=== PATIENT | male | born 2000 | race Hispanic/Latino ===

== ENCOUNTER 2020-12-06 09:20 | Emergency (ER) | payer BC, OTHER ==
--- OUTSIDE RECORDS SUMMARY | 2020-12-06 09:23 | XMS REPORT | Continuity of Care Document ---
:2000 Author Organization [facility] t Address [address] [place] [address] Care Team Providers Name Role Phone Only, Test Attending Clinician Unavailable Jhonatan Quiles MD Attending Clinician Unavailable Doctor Unassigned, Name Attending Clinician Unavailable Sara WATERS, T Attending Clinician Unavailable Lab, Fam Pob I Attending Clinician Unavailable Sylvie ROOF DESIGNER Attending Clinician Problems This patient has no known problems. Allergies, Adverse Reactions, Alerts This patient has no known allergies or adverse reactions. Medications This patient has no known medications. Procedures This patient has no known procedures. Encounters Start End Encounter Admission Attending Care Care Encounter Source Date/Time Date/Time Type Type Clinicians Facility Department ID 2020-01-18 2020-01-18 Laboratory Only, [facility] [id number] 15:07:33 15:22:33 Only Test Venkatesh [id number] [place] [id number] [place] [id number] 2020-01-18 2020-01-18 Telephone JOHAN Quiles [id number] 00:00:00 00:00:00 Rolf OWEN [id number] [facility] [id number] 2020-01-18 2020-01-18 Orders Doctor PRADO [id number] 00:00:00 00:00:00 Only UnaBRAYDEN velazquez [id number] [facility] [id number] 2020-01-13 2020-01-13 Letter JOHAN Ruiz [id number] 00:00:00 00:00:00 (Out) Paige OWEN [id number] [facility] [id number] 2020-01-12 2020-01-12 Laboratory Lab, [facility] [id number] 08:47:47 09:07:47 Only Fam Pob I Health [id number] [place] [id number] [facility] [phone] [address]al [address] 2019-12-31 2019-12-31 Telephone JOHAN Mercer [id number] 00:00:00 00:00:00 Laura OWEN [id number] [facility] [id number] 2019-12-29 2019-12-29 Laboratory Lab, [facility] [id number] 09:25:22 09:45:22 Only Fam Pob I Health [id number] [place] [id number] [facility] [id number] nal [address] Results This patient has no known results.
--- NOTE | 2020-12-06 09:56 | RAD REPORT ---
EXAM DESCRIPTION: CT - Head Brain Wo Cont - 12/06/2020 9:45 am CLINICAL HISTORY: headache COMPARISON: None TECHNIQUE: Computed axial tomography of the head was obtained. IV contrast was not requested. All CT scans are performed using dose optimization technique as appropriate and may include automated exposure control or mA/KV adjustment according to patient size. FINDINGS: An intracranial bleed is not seen . Mild cerebellar tonsillar ectopia The ventricles are normal in caliber. No extra-axial fluid collection is noted. Fluid within the sinuses/ mastoids is not seen. IMPRESSION: Mild cerebellar tonsillar ectopia No acute intracranial abnormality is seen. If patient's symptoms persist MRI of the brain would be r ecommended.
[2020-12-06] MEDS ORDERED: ONDANSETRON 4 MG/2 ML VIAL ONE (12:48)
[2020-12-06] MEDS ORDERED: METOCLOPRAMIDE 10 MG/2mL INJ ONE (12:48)
[2020-12-06] MEDS ORDERED: DIPHENHYDRAMINE 50 MG/ML VIAL ONE (12:48)
[2020-12-06] MEDS ORDERED: KETOROLAC 30 MG/ML INJ ONE (12:48)
[2020-12-06] MEDS ORDERED: dexAMETHasone 10 MG/ML VIAL ONE (12:48)
[2020-12-06] MEDS ORDERED: NA CHLORIDE 0.9% 1,000 ML ONE (12:48)
[2020-12-06 12:53] LABS: Absolute Lymphocytes (CBC) 0.8 K/uL (0.7-4.9); Basophils % 0.5 % (0-1.3); Hematocrit 45.1 % (39.6-49.0); MPV 9.9 fL (7.6-11.3); RBC Red Blood Cell Count 5.25 M/uL (4.33-5.43)
[2020-12-06 12:54] LABS: Protime INR 1.09
[2020-12-06 13:09] LABS: ALT/SGPT 210 U/L (12-78); AST/SGOT 127 U/L (15-37); Albumin 3.8 g/dL (3.4-5.0); Alkaline Phosphatase 82 U/L (45-117); BUN Blood Urea Nitrogen 6 mg/dL (7-18); Bicarbonate 30 mmol/L (21-32); Bilirubin Direct 0.2 mg/dL (0-0.2); Bilirubin Total 0.6 mg/dL (0.2-1.0); Glucose Level 87 mg/dL (74-106); Magnesium 2.2 mg/dL (1.8-2.4); Potassium 3.7 mmol/L (3.5-5.1); Protein, Total 7.7 g/dL (6.4-8.2); Sodium Level 140 mmol/L (136-145)
--- NOTE | 2020-12-06 13:40 | ER ---
Nurse's Notes [facility] Name: Michi Solis Jr Age: 20 yrs Sex: Male : 2000 Arrival Date: 12/06/2020 Time: 09:24 Bed 12 Private MD: Diagnosis: Headache;Elevated blood-pressure reading, without diagnosis of hypertension;Abnormal results of liver function studies Presentation: 12/06 09:29 Chief complaint: Patient states: headache to frontal and occipital area in the mornings aa5 for 5 days, pt also reports 2 episodes of dizziness when he "bends over". Pt reports nausea, denies vomiting. Coronavirus screen: At this time, the client does not indicate any symptoms associated with coronavirus-19. Ebola Screen: Patient negative for fever greater than or equal to 101.5 degrees Fahrenheit, and additional compatible Ebola Virus Disease symptoms. Initial Sepsis Screen: Does the patient meet any 2 criteria? No. Patient's initial sepsis screen is negative. Does the patient have a suspected source of infection? No. Patient's initial sepsis screen is negative. Risk Assessment: Do you want to hurt yourself or someone else? Patient reports no desire to harm self or others. Onset of symptoms was November 2020. 09:29 Method Of Arrival: Ambulatory aa5 09:29 Acuity: BRODIE 3 aa5 Triage Assessment: 12:45 Headache History: The patient has had previous headaches and this one is similar to iw previous episodes. Pain: Also complains of no other associated symptoms. 12:50 Pain: Pain currently is 5 out of 10 on a pain scale. Pain began. iw Historical: - Allergies: 09:31 No Known Allergies; aa5 - Home Meds: 09:31 None [Active]; aa5 - PMHx: 09:31 None; aa5 - PSHx: 09:31 None; aa5 - Immunization history:: Flu vaccine is up to date. - Social history:: Smoking status: Patient denies any tobacco usage or history of. Screenin:45 Abuse screen: Denies threats or abuse. Denies injuries from another. Nutritional iw screening: No deficits noted. Tuberculosis screening: No symptoms or risk factors identified. Fall Risk None identified. Assessment: 12:43 General: Appears in no apparent distress. Behavior is calm, cooperative. Pain: iw Complains of pain in face. Neuro: Level of Consciousness is awake, alert, obeys commands, Oriented to person, place, time, situation, Moves all extremities. Full function. Neuro: Reports headache. Cardiovascular: Patient's skin is warm and dry. Respiratory: Respiratory effort is even, unlabored, Respiratory pattern is regular. GI: Reports nausea. Derm: Skin is intact, is healthy with good turgor. Musculoskeletal: Range of motion: intact in all extremities. 13:51 Reassessment: Patient is alert, oriented x 3, equal unlabored respirations, skin iw warm/dry/pink. Vital Signs: 09:29 BP 150 / 93; Pulse 100; Resp 18 S; Temp 98.6(TE); Pulse Ox 99% on R/A; Weight 158.76 kg aa5 (R); Height 6 ft. 2 in. (187.96 cm) (R); Pain 2/10; 13:02 BP 138 / 90; Pulse 74; Resp 16; Pulse Ox 98.% on R/A; iw 09:29 Body Mass Index 44.94 (158.76 kg, 187.96 cm) aa5 ED Course: 09:24 Patient arrived in ED. as 09:29 Arm band placed on. aa5 09:31 Triage completed. aa5 09:37 Duane Gallo PA is PHCP. cp 09:37 Duane Molina MD is Attending Physician. cp 09:45 CT Head Brain wo Cont In Process Unspecified. EDMS 12:25 Initial lab(s) drawn, by me, sent to lab. Inserted saline lock: 20 gauge in right aa5 antecubital area, using aseptic technique. Blood collected. 12:39 Deb Bynum, RN is Primary Nurse. iw 12:45 Patient has correct armband on for positive identification. iw 13:50 IV discontinued, intact, bleeding controlled, No redness/swelling at site. Pressure iw dressing applied. 13:50 No provider procedures requiring assistance completed. iw Administered Medications: 12:39 Drug: NS 0.9% 1000 ml Route: IV; Rate: 1 bolus; Site: right antecubital; iw 13:30 Follow up: IV Status: Completed infusion iw 12:39 Drug: Reglan (metoCLOPramide) 10 mg Route: IVP; Site: right antecubital; iw 13:30 Follow up: Response: No adverse reaction iw 12:39 Drug: Zofran (Ondansetron) 4 mg Route: IVP; Site: right antecubital; iw 13:00 Follow up: Response: No adverse reaction iw 12:40 Drug: Decadron - Dexamethasone 10 mg Route: IVP; Site: right antecubital; iw 13:10 Follow up: Response: No adverse reaction iw 12:40 Drug: Ketorolac 15 mg Route: IVP; Site: right antecubital; iw 13:40 Follow up: Response: No adverse reaction; Pain is decreased iw 12:40 Drug: Benadryl (diphenhydrAMINE) 25 mg Route: IVP; Site: right antecubital; iw 13:40 Follow up: Response: No adverse reaction; Pain is decreased iw Outcome: 13:39 Discharge ordered by MD. cp 13:51 Discharged to home ambulatory. iw 13:51 Condition: improved 13:51 Discharge instructions given to patient, Instructed on discharge instructions, follow up and referral plans. medication usage, Demonstrated understanding of instructions, follow-up care, medications, Prescriptions given X 1. 13:51 Patient left the ED. iw Signatures: Dispatcher [employer] Shagufta Vivas Irene RN EVELIN iw Rosio Black RN RN aa5 Duane Gallo, GINA PA cp
--- NOTE | 2020-12-06 13:40 | EDPHYS ---
Physician Documentation [facility] Name: Michi Solis Jr Age: 20 yrs Sex: Male : 2000 Arrival Date: 12/06/2020 Time: 09:24 Bed 12 Private MD: ED Physician Duane Molina HPI: 12/06 12:10 This 20 yrs old Male presents to ER via Ambulatory with complaints of cp Headache, Dizziness. 12:10 The patient complains of pain to the top of head and forehead and back of head. cp 12:10 The patient describes the headache as aching, waxing and waning. Onset: The cp symptoms/episode began/occurred 5 day(s) ago. 19:22 Associated signs and symptoms: Pertinent positives: dizziness, nausea, Pertinent cp negatives: altered mental status, neck stiffness, Photophobia vision changes, vomiting, weakness. Severity of symptoms: in the emergency department the pain a " 5" out of "10". Historical: - Allergies: 09:31 No Known Allergies; aa5 - Home Meds: 09:31 None [Active]; aa5 - PMHx: 09:31 None; aa5 - PSHx: 09:31 None; aa5 - Immunization history:: Flu vaccine is up to date. - Social history:: Smoking status: Patient denies any tobacco usage or history of. ROS: 12:15 Constitutional: Negative for body aches, chills, fever, poor PO intake. cp 12:15 Eyes: Negative for injury, pain, redness, and discharge. cp 12:15 ENT: Negative for ear pain, sore throat, difficulty swallowing, difficulty handling secretions. 12:15 Respiratory: Negative for cough, shortness of breath, wheezing. 12:15 Abdomen/GI: Negative for abdominal pain, vomiting, diarrhea, constipation. 12:15 Back: Negative for pain at rest, pain with movement. 12:15 Skin: Negative for rash. 12:15 Neuro: Positive for dizziness, headache, Negative for altered mental status, syncope, weakness. 12:15 All other systems are negative. Exam: 12:22 Head/Face: Normocephalic, atraumatic. cp 12:22 Constitutional: The patient appears in no acute distress, alert, awake, non-diaphoretic, non-toxic, well developed, well nourished, obese. 12:22 Eyes: Periorbital structures: appear normal, Pupils: equal, round, and reactive to light and accomodation, Extraocular movements: intact throughout, Conjunctiva: normal, no exudate, no injection, Sclera: no appreciated abnormality, Lids and lashes: appear normal, bilaterally. 12:22 ENT: External ear(s): are unremarkable, Ear canal(s): are normal, clear, TM's: dullness, bilaterally, Nose: is normal, Mouth: Lips: moist, Oral mucosa: pink and intact, moist, Posterior pharynx: is normal, airway is patent, no erythema, no exudate. 12:22 Neck: ROM/movement: is normal, is supple, without pain, no range of motions limitations, no meningismus, no nuchal rigidity. 12:22 Chest/axilla: Inspection: normal, Palpation: is normal, no crepitus, no tenderness. 12:22 Cardiovascular: Rate: normal, Rhythm: regular, Heart sounds: murmur, not appreciated, Edema: is not appreciated. 12:22 Respiratory: the patient does not display signs of respiratory distress, Respirations: normal, no use of accessory muscles, no retractions, labored breathing, is not present, Breath sounds: are clear throughout, no decreased breath sounds. 12:22 Abdomen/GI: Inspection: abdomen appears normal, Palpation: abdomen is soft and non-tender, in all quadrants. 12:22 Neuro: Orientation: to person, place \\T\\ time. Mentation: is normal, Cerebellar function: is grossly normal, Motor: moves all fours, strength is normal, Sensation: is normal. Vital Signs: 09:29 BP 150 / 93; Pulse 100; Resp 18 S; Temp 98.6(TE); Pulse Ox 99% on R/A; Weight 158.76 kg aa5 (R); Height 6 ft. 2 in. (187.96 cm) (R); Pain 2/10; 13:02 BP 138 / 90; Pulse 74; Resp 16; Pulse Ox 98.% on R/A; iw 09:29 Body Mass Index 44.94 (158.76 kg, 187.96 cm) aa5 MDM: 12:04 Patient medically screened. [facility] 13:38 Data reviewed: vital signs, nurses notes, lab test result(s), radiologic studies, CT cp scan, and as a result, I will discharge patient. 13:38 Differential diagnosis: hyponatremia, intracerebral hemorrhage, meningitis, cp meningoencephalitis, migraine, subarachnoid bleed, subdural hematoma, tension headache. Counseling: I had a detailed discussion with the patient and/or guardian regarding: the historical points, exam findings, and any diagnostic results supporting the discharge/admit diagnosis, lab results, radiology results, the need for outpatient follow up, a family practitioner, to return to the emergency department if symptoms worsen or persist or if there are any questions or concerns that arise at home. 12/06 12:13 Order name: Basic Metabolic Panel; Complete Time: 13:12 cp 12/06 13:12 Interpretation: Normal except: BUN 6. cp 12/06 12:13 Order name: CBC with Diff 12/06 13:12 Interpretation: Normal except: PLT 130. 12/06 09:32 Order name: CT Head Brain wo Cont; Complete Time: 12:07 aa5 12/06 12:13 Order name: LFT's; Complete Time: 13:12 cp 12/06 13:13 Interpretation: Normal except: AST 127; ALT 210; GLOB 3.9; A/G 1.0. cp 12/06 12:13 Order name: Magnesium; Complete Time: 13:12 cp 12/06 12:13 Order name: PT-INR; Complete Time: 13:12 cp 12/06 12:13 Order name: IV Saline Lock; Complete Time: 12:28 cp 12/06 12:13 Order name: Labs collected and sent; Complete Time: 12:28 cp 12/06 12:13 Order name: O2 Per Protocol; Complete Time: 12:28 cp 12/06 12:13 Order name: O2 Sat Monitoring; Complete Time: 12:28 cp Administered Medications: 12:39 Drug: NS 0.9% 1000 ml Route: IV; Rate: 1 bolus; Site: right antecubital; iw 13:30 Follow up: IV Status: Completed infusion iw 12:39 Drug: Reglan (metoCLOPramide) 10 mg Route: IVP; Site: right antecubital; iw 13:30 Follow up: Response: No adverse reaction iw 12:39 Drug: Zofran (Ondansetron) 4 mg Route: IVP; Site: right antecubital; iw 13:00 Follow up: Response: No adverse reaction iw 12:40 Drug: Decadron - Dexamethasone 10 mg Route: IVP; Site: right antecubital; iw 13:10 Follow up: Response: No adverse reaction iw 12:40 Drug: Ketorolac 15 mg Route: IVP; Site: right antecubital; iw 13:40 Follow up: Response: No adverse reaction; Pain is decreased iw 12:40 Drug: Benadryl (diphenhydrAMINE) 25 mg Route: IVP; Site: right antecubital; iw 13:40 Follow up: Response: No adverse reaction; Pain is decreased iw Disposition: 12/07 06:25 Co-signature as Attending Physician, Duane Molina MD I agree with the assessment and yuly plan of care. Disposition Summary: 12/06/20 13:39 Discharge Ordered Location: Home cp Problem: new cp Symptoms: have improved cp Condition: Stable cp Diagnosis - Headache cp - Elevated blood-pressure reading, without diagnosis of hypertension cp - Abnormal results of liver function studies cp Followup: cp - With: Private Physician - When: 2 - 3 days - Reason: Recheck today's complaints Discharge Instructions: - Discharge Summary Sheet cp - General Headache Without Cause cp - How to Take Your Blood Pressure cp Forms: - Medication Reconciliation Form cp - Work release form iw - Thank You Letter cp - Antibiotic Education cp - Prescription Opioid Use cp Prescriptions: - Ibuprofen 800 mg Oral Tablet - take 1 tablet by ORAL route every 8 hours As needed take with food; 30 tablet; cp Refills: 0, Product Selection Permitted Signatures: Dispatcher [employer] Duane Forte MD MD cha Williams, Irene RN Rosio Sanchez RN RN aa5 Duane Gallo PA PA cp Corrections: (The following items were deleted from the chart) 12/06 12:20 12:13 Cardiac monitoring ordered. cp iw :12/05 12:22 Constitutional: The patient appears in no acute distress, alert, awake, cp non-diaphoretic, non-toxic, well developed, well nourished, obese, cp 12/06 19:20 12/05 12:22 Head/Face: Normocephalic, atraumatic. cp cp 12/06 19:12/05 12:22 Eyes: Periorbital structures: appear normal, Pupils: equal, round, and cp reactive to light and accomodation, Extraocular movements: intact throughout, Conjunctiva: normal, no exudate, no injection, Sclera: no appreciated abnormality, Lids and lashes: appear normal, bilaterally, cp 12/06 18:12/05 12:22 ENT: External ear(s): are unremarkable, Ear canal(s): are normal, clear, cp TM's: dullness, bilaterally, Nose: is normal, Mouth: Lips: moist, Oral mucosa: pink and intact, moist, Posterior pharynx: is normal, airway is patent, no erythema, no exudate, cp 12/06 18:12/05 12:22 Neck: ROM/movement: is normal, is supple, without pain, no range of motions cp limitations, no meningismus, no nuchal rigidity, cp 12/06 18:12/05 12:22 Chest/axilla: Inspection: normal, Palpation: is normal, no crepitus, no cp tenderness, cp 12/06 18:12/05 12:22 Cardiovascular: Rate: normal, Rhythm: regular, Heart sounds: murmur, not cp appreciated, Edema: is not appreciated, cp 12/06 18:12/05 12:22 Respiratory: the patient does not display signs of respiratory distress, cp Respirations: normal, no use of accessory muscles, no retractions, labored breathing, is not present, Breath sounds: are clear throughout, no decreased breath sounds, cp 12/06 18:12/05 12:22 Abdomen/GI: Inspection: abdomen appears normal, Palpation: abdomen is soft cp and non-tender, in all quadrants, cp 12/06 18:12/05 12:22 Neuro: Orientation: to person, place \\T\\ time. Mentation: is normal, cp Cerebellar function: is grossly normal, Motor: moves all fours, strength is normal, Sensation: is normal, cp
[2020-12-06 13:58] LABS: Blood Morphology Comment NOT SEEN (NOT SEEN); Platelet Estimate DECR; Platelets, Giant PRESENT; White Blood Cell Scan OK (OK)
[2020-12-06 21:44] VITALS: TEMP 98.6; O2SAT 99
[2020-12-06 21:45] VITALS: BP 138/90
== END 2020-12-06 13:51 | disposition home or self-care (01) ==
LOC: ER 09:20
DX: R03.0 Elevated blood-pressure reading, without diagnosis of hypertension (principal); R94.5 Abnormal results of liver function studies
CPT/HCPCS: 96361; 85025; 80048; 36415; 83735; 85610; 80076; 70450; 96375; 96374; 99284; J2765; J1200; J1100; J7030; J2405

== ENCOUNTER 2023-03-05 11:30 | Emergency (ER) | payer BC, SELFPAY ==
--- OUTSIDE RECORDS SUMMARY | 2023-03-05 11:33 | XMS REPORT | Continuity of Care Document ---
:2000 Author Organization [facility] t Address [address] [facility] [address] [place] [address] Care Team Providers Name Role Phone Rolf Quiles MD Primary Care Physician Unavailable Only, Ang Db Test Attending Clinician Unavailable Gagan Nino MD Attending Clinician GAGAN NINO Attending Clinician Unavailable Sadie Samaniego RN Attending Clinician Unavailable Doctor Unassigned, [place] Attending Clinician Unavailable Only, Adc Test Attending Clinician Unavailable Sadiq Zaldivar MD Attending Clinician Rolf Quiles MD Attending Clinician Unavailable Paige Ruiz RN Attending Clinician Unavailable Lab, Adc Fam Pob I Attending Clinician Unavailable Laura Mills Attending Clinician LAURA CROWELL Attending Clinician Unavailable Payers Payer Name Policy Type Policy Number Effective Date Expiration Date S ource Problems This patient has no known problems. Allergies, Adverse Reactions, Alerts Allergy Allergy Status Severity Reaction(s) Onset Inactive Treating Comm ents Source Name Type Date Date Clinician NO KNOWN Drug Active [facility] Social History Social Habit Start Date Stop Date Quantity Comments Source Sexual orientation [facility] Exposure to 2021-02-24 2021-03-26 Not sure [facility] SARS-CoV-2 (event) 00:00:00 11:53:00 [facility] At [birth year] [facility] Medical [place] Smoking Status Start Date Stop Date Source Tobacco smoking consumption Univ [facility] unknown Branch Medications This patient has no known medications. Procedures Procedure Date / Time Performing Clinician Source Performed ASSIGNMENT OF BENEFITS 2021-01-15 16:46:13 Doctor Unassigned, No [facility] PATIENT QUESTIONNAIRE 2020-01-18 05:01:00 Doctor Unassigned, No [facility] Encounters Start End Encounter Admission Attending Care Care Encounter Source Date/Time Date/Time Type Type Clinicians Facility Department ID 2021-03-26 2021-03-26 Laboratory Only, Ang Db Test [facility] 1.2.8 40.114 [id number] Univers 11:54:38 12:09:38 Only Nadir Gagan HEALTH [id number] ity of [place] 4.2.7.2.686 Abraham as TANO?BLEA [phone] [address] MEDICAL OFFICE [facility] 2021-03-26 2021-03-26 [facility] [id number] Univers 12:00:00 12:04:53 [facility] 2021-01-16 2021-01-16 Telephone JOHAN Samaniego [id number] Univers 00:00:00 00:00:00 Sadie OWEN [id number] it y of [facility] 4.2.7.2.686 Abraham as [id number] [address] 2021-01-15 2021-01-15 Laboratory Only, Ang Db Test [facility] 1.2.8 40.114 [id number] Univers 11:46:15 11:56:15 Only Nadir Gagan [facility] [id number] ity of [place] 4.2.7.2.686 Abraham as Tano?Blea [phone] [address] Medical Office [facility] 2021-01-15 2021-01-15 [facility] [id number] Univers 11:45:00 11:45:00 GAGAN [facility] 2021-01-15 2021-01-15 Orders Doctor PRADO 1.2.840.114 [id number] Univers 00:00:00 00:00:00 Only Unassigned, [place] [id number] ity of [place] [facility] 4.2.7.2.686 Abraham as [phone] [address] 2020-01-18 2020-01-18 Laboratory Only, [facility] 1.2.840.114 [id number] 15:07:33 15:22:33 Only Test [place] [id number] [place] 4.2.7.2.686 [place] [id number] 2020-01-18 2020-01-18 Laboratory Only, [employer] Test [facility] 1.2.840. 114 [id number] Univers 15:07:33 15:22:33 Only Sadiq Zaldivar 350.1.13.10 ity [facility] 4.2.7.2.686 [place] [facility] [id number] [address] 2020-01-18 2020-01-18 Outpatient R [facility] [id number] Univers 14:45:00 14:45:00 ity [facility] 2020-01-18 2020-01-18 Telephone JOHAN Quiles [id number] 00:00:00 00:00:00 Rolf OWEN [id number] [facility] 4.2.7.2.686 [id number] 2020-01-18 2020-01-18 Orders Doctor PRADO 1.2.840.114 [id number] 00:00:00 00:00:00 Only Unassigned, [place] [id number] [place] [facility] 4.2.7.2.686 [id number] 2020-01-18 2020-01-18 Telephone JOHAN Quiles.[id number] Univers 00:00:00 00:00:00 Rolf OWEN [id number] it y of [facility] 4.2.7.2.686 Abraham as [phone] [address] 2020-01-18 2020-01-18 Orders Doctor JOHAN Sanders.2.840.114 [id number] Univers 00:00:00 00:00:00 Only Unassigned, [place]RAY[place] [id number] ity of [place] [facility] 4.2.7.2.686 Abraham as [id number] [facility] 009 [place] 2020-01-13 2020-01-13 Letter JOHAN Ruiz 1.2.840.114 [id number] Univers 00:00:00 00:00:00 (Out) Paige Ramirez [place] [id number] it y of HOSPITAL 4.2.7.2.686 Abraham as [id number] [facility] 019 [place] 2020-01-13 2020-01-13 Patient Doctor JOHAN 1.2.840.114 [id number] Univers 00:00:00 00:00:00 Secure Msg Unassigned, [place]RAY[place] 350.1.13.10 ity of [place] [facility] 4.2.7.2.686 Abraham as [phone] [facility] 019 [place] 2020-01-13 2020-01-13 Letter JOHAN Ruiz 1.2.840.114 [id number] 00:00:00 00:00:00 (Out) Paige Ramirez [place] 350.1.13.10 HOSPITAL 4.2.7.2.686 [id number] 2020-01-12 2020-01-12 Laboratory Lab, [employer] Fam Pob I [facility] 1.2. 840.114 [id number] Univers 08:47:47 09:07:47 Only Sylvie [facility] 350.1.13.10 ity of [place] 4.2.7.2.686 Abraham as Professio [phone] Nd dical [address] Office [facility] 2020-01-12 2020-01-12 Laboratory Lab, [facility] 1.2.840.114 [id number] 08:47:47 09:07:47 Only Fam Pob I Health 350.1.13.10 [place] 4.2.7.2.686 Professio [phone] [place] [address] [facility] 2020-01-12 2020-01-12 Outpatient R SYLVIE [facility] [id number] Univers 08:20:00 08:20:00 LAURA ity of [facility] 2019-12-31 2019-12-31 Telephone JOHAN Crowell [id number] [facility] 00:00:00 00:00:00 Laura OWEN 350.1.13.10 it y of [facility] 4.2.7.2.686 Abraham as [phone] [address] 2019-12-31 2019-12-31 Telephone JOHAN Crowell [id number] 00:00:00 00:00:00 Laura OWEN 350.1.13.10 [facility] 4.2.7.2.686 [id number] [facility] 2019-12-29 2019-12-29 Laboratory Lab, [facility] Pob I [facility] 1.2. 840.114 [id number] [facility] 09:25:22 09:45:22 Only Laura Crowell 350.1.13.[address] [facility] 4.2.7.2.686 Abraham as Professio [phone] Nd dical [address] Office Building [facility] 2019-12-29 2019-12-29 Laboratory Lab, [facility] 1.2.840.114 [id number] 09:25:22 09:45:22 Only [facility] Health 350.1.13.10 [place] 4.2.7.2.686 Professio [phone] [place] [address] Office Building [facility] 2019-12-29 2019-12-29 Outpatient R SYLVIE [facility] [id number] [facility] 09:20:00 09:20:00 LAURA maradiaga of [facility] Results This patient has no known results.
[2023-03-05 11:49] LABS: Absolute Lymphocytes (CBC) 2.5 K/uL (0.7-4.9); Hematocrit 42.2 % (39.6-49.0); MCV 85.8 fL (80-100); MPV 10.1 fL (7.6-11.3); Platelets 156 thou/uL (152-406); RBC Red Blood Cell Count 4.92 M/uL (4.33-5.43)
[2023-03-05] MEDS ORDERED: MORPHINE 4 MG/ML SYR ONE (11:50)
[2023-03-05] MEDS ORDERED: KETOROLAC 30 MG/ML INJ ONE (11:50)
[2023-03-05] MEDS ORDERED: NA CHLORIDE 0.9% 1,000 ML ONE ×2 (11:51→12:43)
[2023-03-05] MEDS ORDERED: ONDANSETRON 4 MG/2 ML VIAL ONE (11:51)
--- NOTE | 2023-03-05 12:05 | RAD REPORT ---
EXAM DESCRIPTION: CT - Stone Protocol - 03/05/2023 11:46 am CLINICAL HISTORY: Flank pain. Abd pain;Flank pain COMPARISON: No comparisons TECHNIQUE: Axial images were obtained without oral or IV contrast. Lack of contrast limits solid org an and vascular assessment. The [id number] spans the entirety of the system partially obscuring uppermost abdomen and lung bases. Coronal reformatted images were obtained and reviewed. All CT scans are performed using dose optimization technique as appropriate and may include automated exposure control or mA/KV adjustment according to patient size. FINDINGS: The lower lung duffy are clear. Imaged portions of the liver and spleen show no suspicious findings on non-contrast imaging. The panc reas and adrenal glands are normal. No pathologic lymphadenopathy in the abdomen or pelvis. 2 mm calculus is seen at the right UVJ along the bladder mucosa. No significant hydronephrosis. No bowel obstruction, free air, free fluid or abscess. Normal appendix noted. No significant bony abnormality. IMPRESSION: 2 mm calculus right UVJ along the bladder mucosa. No hydronephrosis seen bilaterally.
[2023-03-05 12:08] LABS: Albumin 3.7 g/dL (3.4-5.0); Bilirubin Total 0.7 mg/dL (0.2-1.0); Potassium 3.6 mEq/L (3.5-5.1); Protein, Total 7.5 g/dL (6.4-8.2)
--- NOTE | 2023-03-05 12:12 | EDPHYS ---
Physician Documentation [facility] Name: Michi Solis Jr Age: 22 yrs Sex: Male : 2000 Arrival Date: 03/05/2023 Time: 11:30 Bed 2 Private MD: ED Physician Duane Molina HPI: 03/05 11:33 This 22 yrs old Male presents to ER via Unassigned with complaints of Back yuly Pain. 11:33 The patient presents with pain that is acute, with no known mechanism of injury. The yuly symptoms are located in the low back, right mid back and right low back. Onset: The symptoms/episode began/occurred just prior to arrival. The pain does not radiate. Associated signs and symptoms: The patient has no apparent associated signs or symptoms. The problem was sustained from unknown cause. Modifying factors: The patient symptoms are alleviated by nothing, the patient symptoms are aggravated by nothing. Severity of symptoms: At their worst the symptoms were moderate, in the emergency department the symptoms have resolved. The patient has not experienced similar symptoms in the past. Historical: - Allergies: 11:33 No Known Allergies; kc6 - Home Meds: 11:33 None [Active]; kc6 - PMHx: 11:33 None; kc6 - PSHx: 11:33 None; kc6 - Immunization history:: Adult Immunizations up to date. - Social history:: Smoking status: Reported history of juuling and/or vaping. - Family history:: not pertinent. ROS: 11:33 Constitutional: Negative for fever, chills, and weight loss, Eyes: Negative for injury, yuly pain, redness, and discharge, ENT: Negative for injury, pain, and discharge, Neck: Negative for injury, pain, and swelling, Cardiovascular: Negative for chest pain, palpitations, and edema, Respiratory: Negative for shortness of breath, cough, wheezing, and pleuritic chest pain, Back: Negative for injury and pain, : Negative for injury, bleeding, discharge, and swelling, MS/Extremity: Negative for injury and deformity, Skin: Negative for injury, rash, and discoloration, Neuro: Negative for headache, weakness, numbness, tingling, and seizure, Psych: Negative for depression, anxiety, suicide ideation, homicidal ideation, and hallucinations, Allergy/Immunology: Negative for hives, rash, and allergies, Endocrine: Negative for neck swelling, polydipsia, polyuria, polyphagia, and marked weight changes, Hematologic/Lymphatic: Negative for swollen nodes, abnormal bleeding, and unusual bruising, 11:33 Abdomen/GI: Positive for abdominal pain, of the anterior aspect of left lateral abdomen, posterior aspect of left lateral abdomen, right upper quadrant and right lower quadrant, Exam: 11:33 Constitutional: This is a well developed, well nourished patient who is awake, alert, yuly and in no acute distress. Head/Face: Normocephalic, atraumatic. Eyes: Pupils equal round and reactive to light, extra-ocular motions intact. Lids and lashes normal. Conjunctiva and sclera are non-icteric and not injected. Cornea within normal limits. Periorbital areas with no swelling, redness, or edema. ENT: Nares patent. No nasal discharge, no septal abnormalities noted. Tympanic membranes are normal and external auditory canals are clear. Oropharynx with no redness, swelling, or masses, exudates, or evidence of obstruction, uvula midline. Mucous membranes moist. Neck: Trachea midline, no thyromegaly or masses palpated, and no cervical lymphadenopathy. Supple, full range of motion without nuchal rigidity, or vertebral point tenderness. No Meningismus. Chest/axilla: Normal chest wall appearance and motion. Nontender with no deformity. No lesions are appreciated. Cardiovascular: Regular rate and rhythm with a normal S1 and S2. No gallops, murmurs, or rubs. Normal PMI, no JVD. No pulse deficits. Respiratory: Lungs have equal breath sounds bilaterally, clear to auscultation and percussion. No rales, rhonchi or wheezes noted. No increased work of breathing, no retractions or nasal flaring. Abdomen/GI: Soft, non-tender, with normal bowel sounds. No distension or tympany. No guarding or rebound. No evidence of tenderness throughout. Male : Normal genitalia with no discharge or lesions. Skin: Warm, dry with normal turgor. Normal color with no rashes, no lesions, and no evidence of cellulitis. MS/ Extremity: Pulses equal, no cyanosis. Neurovascular intact. Full, normal range of motion. Neuro: Awake and alert, GCS 15, oriented to person, place, time, and situation. Cranial nerves II-XII grossly intact. Motor strength 5/5 in all extremities. Sensory grossly intact. Cerebellar exam normal. Normal gait. Psych: Awake, alert, with orientation to person, place and time. Behavior, mood, and affect are within normal limits. 11:33 Back: pain, that is mild, that is moderate, ROM is normal, normal spinal alignment noted, CVA tenderness, that is mild, is noted on the right, muscle spasm, is not present, Straight leg raises: of both lower extremities does not illicit pain, Vital Signs: 11:32 Pulse 88; Resp 16 S; Temp 96.6(TE); Pulse Ox 99% on R/A; Weight 161.03 kg (R); Height 6 kc6 ft. 1 in. ; Pain 5/10; 11:38 BP 122 / 99; kc6 12:00 BP 130 / 69; Pulse 75; Resp 18; Pulse Ox 97% on R/A; me1 12:30 BP 132 / 85; Pulse 79; Resp 16; Pulse Ox 97% on R/A; me1 13:00 BP 143 / 90; Pulse 76; Resp 16; Pulse Ox 94% on R/A; me1 11:32 Body Mass Index 46.84 (161.03 kg, 185.42 cm) [facility] 11:32 Pain Scale: Adult kc6 MDM: 11:32 Patient medically screened. [facility] 11:33 Differential diagnosis: Cholelithiasis chronic back pain, Fatigue Neoplasm Obesity yuly Osteoarthritis Pyelonephritis Renal Infarction ruptured disc, Scoliosis spinal injury, sprain, Ureterolithiasis. Data reviewed: vital signs, nurses notes, lab test result(s), radiologic studies, CT scan. Consideration of Admission/Observation Escalation of care including admission/observation considered. I considered the following discharge prescriptions or medication management in the emergency department Medications were administered in the Emergency Department. See MAR. Test considered but Not performed: Ultrasound no renal usg. 03/05 11:33 Order name: CBC with Diff; Complete Time: 12:09 [facility] 03/05 11:33 Order name: CMP; Complete Time: 12:09 [facility] 03/05 11:33 Order name: Lipase; Complete Time: 12:09 [facility] 03/05 11:33 Order name: CT Stone Protocol; Complete Time: 12:09 [facility] 03/05 11:33 Order name: IV Saline Lock; Complete Time: 11:35 [facility] 03/05 11:33 Order name: Labs collected and sent; Complete Time: 11:38 yuly Administered Medications: 11:43 Drug: NS 0.9% IV 1000 ml IV at 1 bolus Per protocol; 1000 mL bolus Route: IV; Rate: 1 ph bolus; Site: left antecubital; 14:04 Follow up: IV Status: Completed infusion me1 11:43 Drug: Ondansetron IVP 4 mg IVP once; over 2 minutes Route: IVP; Site: left antecubital; ph 12:38 Follow up: Response: No adverse reaction me1 11:43 Drug: morphine IVP or IV 4 mg IVP once over 4 mins Route: IVP; Infused Over: 4 mins; ph Site: left antecubital; 12:38 Follow up: Response: No adverse reaction; Pain is decreased me1 11:43 Drug: Ketorolac IVP 30 mg IVP once Route: IVP; Site: left antecubital; ph 13:36 Follow up: Response: No adverse reaction; Pain is unchanged, physician notified me1 12:38 Drug: NS 0.9% IV 1000 ml IV at 1 bolus Per protocol; 1000 mL bolus Route: IV; Rate: 1 me1 bolus; Site: right antecubital; 13:00 Follow up: IV Status: Completed infusion me1 12:38 Drug: Flomax PO 0.4 mg PO once Route: PO; me1 13:36 Follow up: Response: No adverse reaction me1 12:38 Drug: Rocephin IV 1 grams IV at per protocol once; Given slow IV push per pharmacy me1 instructions Route: IV; Rate: per protocol; Site: right antecubital; 12:40 Follow up: Response: No adverse reaction; IV Status: Completed infusion me1 12:42 Drug: HYDROmorphone IVP 1 mg IVP once Route: IVP; Site: right antecubital; me1 13:35 Follow up: Response: No adverse reaction; Pain is decreased me1 Disposition Summary: 03/05/23 12:11 Discharge Ordered Notes: Location: Home yuly Problem: new yuly Symptoms: have improved yuly Condition: Stable yuly Diagnosis - Hydronephrosis with renal and ureteral calculous obstruction - 2 mm uvj yuly Followup: yuly - With: Private Physician - When: 2 - 3 days - Reason: Recheck today's complaints, Continuance of care, Re-evaluation by your physician Followup: yuly - With: Corbin Vallecillo MD - When: 2 - 3 days - Reason: Recheck today's complaints, Re-evaluation by your physician Discharge Instructions: - Discharge Summary Sheet yuly - Kidney Stones yuly - Kidney Stones, Zcee-hh-Vvje yuly - Hydronephrosis yuly - Dietary Guidelines to Help Prevent Kidney Stones [facility] Forms: - Medication Reconciliation Form [facility] - Thank You Letter yuly - Antibiotic Education yuly - Prescription Opioid Use yuly - Patient Portal Instructions [facility] - Leadership Thank You Letter [facility] Prescriptions: - acetaminophen-codeine 300-30 mg Oral tablet - take 2 tablet ORAL route every 6 hours; 20 tablet; Refills: 0, Product [facility] Selection Permitted - ketorolac 10 mg Oral tablet - take 1 tablet ORAL route every 6 hours for 3 days; 12 tablet; Refills: 0, [facility] Product Selection Permitted - ondansetron 4 mg Oral Tablet,disintegrating - take 1 tablet ORAL route every 6-8 hours for 5 days; 20 tablet; Refills: 0, [facility] Product Selection Permitted - Flomax 0.4 mg Oral capsule - take 1 capsule ORAL route every 24 hours; 20 capsule; Refills: 0, Product [facility] Selection Permitted - Cipro 500 mg Oral Tablet - take 1 tablet ORAL route every 12 hours for 7 days; 14 tablet; Refills: 0, [facility] Product Selection Permitted Signatures: Dispatcher [employer] Duane Forte MD MD cha Hall, Patricia RN RN ph Nan Ramos RN RN kc6 Kirsten Britt RN RN me1
--- NOTE | 2023-03-05 12:12 | ER ---
Nurse's Notes [facility] Name: Michi Solis Jr Age: 22 yrs Sex: Male : 2000 Arrival Date: 03/05/2023 Time: 11:30 Bed 2 Private MD: Diagnosis: Hydronephrosis with renal and ureteral calculous obstruction-2 mm uvj Presentation: 03/05 11:32 Chief complaint: Patient states: sudden onset KAYLA lower back pain while at work. denies kc6 injury or heavy lifting. denies urinary symptoms. Coronavirus screen: At this time, the client does not indicate any symptoms associated with coronavirus-19. Ebola Screen: No symptoms or risks identified at this time. Initial Sepsis Screen: Does the patient meet any 2 criteria? No. Patient's initial sepsis screen is negative. Does the patient have a suspected source of infection? No. Patient's initial sepsis screen is negative. Risk Assessment: Do you want to hurt yourself or someone else? Patient reports no desire to harm self or others. Onset of symptoms was March 05, 2023. 11:32 [facility] Ac[facility]: BRODIE 3 kc6 Triage Assessment: 11:33 General: Appears in no apparent distress. uncomfortable, obese, well groomed, Behavior kc6 is calm, cooperative, appropriate for age. Pain: Complains of pain in left low back and right low back Pain does not radiate. Pain currently is 5 out of 10 on a pain scale. at worst was 10 out of 10 on a pain scale. EENT: No signs and/or symptoms were reported regarding the EENT system. Neuro: Level of Consciousness is awake, alert, obeys commands, Oriented to person, place, time, situation, Appropriate for age. Cardiovascular: Capillary refill < 3 seconds. Respiratory: Airway is patent Trachea midline Respiratory effort is even, unlabored, Respiratory pattern is regular, symmetrical. GI: No signs and/or symptoms were reported involving the gastrointestinal system. : No signs and/or symptoms were reported regarding the genitourinary system. Derm: No signs and/or symptoms reported regarding the dermatologic system. Skin is intact, is healthy with good turgor, Skin is pink, warm \T\ dry. Musculoskeletal: No signs and/or symptoms reported regarding the musculoskeletal system. Circulation, motion, and sensation intact. Capillary refill < 3 seconds, Range of motion: intact in all extremities. Historical: - Allergies: 11:33 No Known Allergies; kc6 - Home Meds: 11:33 None [Active]; kc6 - PMHx: 11:33 None; kc6 - PSHx: 11:33 None; kc6 - Immunization history:: Adult Immunizations up to date. - Social history:: Smoking status: Reported history of juuling and/or vaping. - Family history:: not pertinent. Screenin:34 [facility] ED Fall Risk Assessment (Adult) History of falling in the last 3 months, kc6 including since admission No falls in past 3 months (0 pts) Confusion or Disorientation No (0 pts) Intoxicated or Sedated No (0 pts) Impaired Gait No (0 pts) Mobility Assist Device Used No (0 pt) Altered Elimination No (0 pt) Score/Fall Risk Level 0 - 2 = Low Risk. Abuse screen: Denies threats or abuse. Denies injuries from another. Nutritional screening: No deficits noted. Tuberculosis screening: No symptoms or risk factors identified. Assessment: 11:35 Reassessment: please see triage assessment. [facility] Vital Signs: 11:32 Pulse 88; Resp 16 S; Temp 96.6(TE); Pulse Ox 99% on R/A; Weight 161.03 kg (R); Height 6 kc6 ft. 1 in. ; Pain 5/10; 11:38 BP 122 / 99; kc6 12:00 BP 130 / 69; Pulse 75; Resp 18; Pulse Ox 97% on R/A; me1 12:30 BP 132 / 85; Pulse 79; Resp 16; Pulse Ox 97% on R/A; me1 13:00 BP 143 / 90; Pulse 76; Resp 16; Pulse Ox 94% on R/A; me1 11:32 Body Mass Index 46.84 (161.03 kg, 185.42 cm) kc6 11:32 Pain Scale: Adult [facility] ED Course: 11:31 Patient arrived in ED. kc6 11:32 Duane Molina MD is Attending Physician. [facility] 11:32 Nan Ramos RN is Primary Nurse. kc6 11:33 Triage completed. kc6 11:33 Arm band placed on. kc6 11:34 Maintain EMS IV. Dressing intact. Good blood return noted. Site clean \T\ dry. Gauge \T\ stew 6 site: 20G LAC. Patient maintains SpO2 saturation greater than 95% on room air. 11:35 Patient has correct armband on for positive identification. Bed in low position. Call kc6 light in reach. Side rails up X2. Client placed on continuous cardiac and pulse oximetry monitoring. NIBP monitoring applied. 11:44 CBC with Diff Sent. ph 11:44 CMP Sent. ph 11:44 Lipase Sent. ph 11:47 CT Stone Protocol In Process Unspecified. EDMS 12:10 Corbin Vallecillo MD is Referral Physician. [facility] 14:10 No provider procedures requiring assistance completed. IV discontinued, intact, ph bleeding controlled, No redness/swelling at site. Pressure dressing applied. Administered Medications: 11:43 Drug: NS 0.9% IV 1000 ml IV at 1 bolus Per protocol; 1000 mL bolus Route: IV; Rate: 1 ph bolus; Site: left antecubital; 14:04 Follow up: IV Status: Completed infusion me1 11:43 Drug: Ondansetron IVP 4 mg IVP once; over 2 minutes Route: IVP; Site: left antecubital; ph 12:38 Follow up: Response: No adverse reaction me1 11:43 Drug: morphine IVP or IV 4 mg IVP once over 4 mins Route: IVP; Infused Over: 4 mins; ph Site: left antecubital; 12:38 Follow up: Response: No adverse reaction; Pain is decreased me1 11:43 Drug: Ketorolac IVP 30 mg IVP once Route: IVP; Site: left antecubital; ph 13:36 Follow up: Response: No adverse reaction; Pain is unchanged, physician notified me1 12:38 Drug: NS 0.9% IV 1000 ml IV at 1 bolus Per protocol; 1000 mL bolus Route: IV; Rate: 1 me1 bolus; Site: right antecubital; 13:00 Follow up: IV Status: Completed infusion me1 12:38 Drug: Flomax PO 0.4 mg PO once Route: PO; me1 13:36 Follow up: Response: No adverse reaction me1 12:38 Drug: Rocephin IV 1 grams IV at per protocol once; Given slow IV push per pharmacy me1 instructions Route: IV; Rate: per protocol; Site: right antecubital; 12:40 Follow up: Response: No adverse reaction; IV Status: Completed infusion me1 12:42 Drug: HYDROmorphone IVP 1 mg IVP once Route: IVP; Site: right antecubital; me1 13:35 Follow up: Response: No adverse reaction; Pain is decreased me1 Medication: 11:44 VIS not applicable for this client. ph Outcome: 12:11 Discharge ordered by . yuly 14:12 Discharged to home ambulatory, with significant other, ph 14:12 Condition: good 14:12 Discharge instructions given to patient, Instructed on discharge instructions, follow up and referral plans. medication usage, Demonstrated understanding of instructions, follow-up care, medications, Prescriptions given X 4, 14:13 Patient left the ED. ph Signatures: Dispatcher [employer] EDMS Duane Molina MD MD cha Hall, Patricia, RN RN Nan Kang RN RN kc6 Kirsten Britt RN RN me1 Corrections: (The following items were deleted from the chart) 11:43 11:43 Ketorolac IVP 30 mg IVP in right antecubital ph ph
[2023-03-05] MEDS ORDERED: CEFTRIAXONE 1000 MG/VIAL ONE (12:43)
[2023-03-05] MEDS ORDERED: TAMSULOSIN 0.4 MG SR CAP ONE (12:43)
[2023-03-05] MEDS ORDERED: HYDROMORPHONE HCL 1 MG/ML INJ ONE (12:53)
[2023-03-05 16:36] VITALS: BP 143/90; TEMP 96.6; O2SAT 94
== END 2023-03-05 14:13 | disposition home or self-care (01) ==
LOC: ER 11:30
DX: F17.290 Nicotine dependence, other tobacco product, uncomplicated (principal); N13.2 Hydronephrosis with renal and ureteral calculous obstruction
CPT/HCPCS: 36415; 74176; 76377; 80053; 83690; 85025; 99285; J0696; J1170; J2405; J7030